=== PATIENT | male | born 1965 | race African-American/Black ===

== ENCOUNTER 2016-07-02 19:16 | Emergency (ER) | payer OTHER ==
[~2016-07-02] VITALS: Ht 167.6 cm; Wt 78.3 kg
[2016-07-02 20:18] LABS: CHLORIDE 100 mEq/L (99-109); POTASSIUM 3.3 mEq/L (3.7-5.4); SODIUM 135 mEq/L (136-147)
[2016-07-02 20:20] LABS: EOSINOPHIL (%) 0.9 % (0-5); EOSINOPHIL COUNT 0.1 K/uL (0-0.3); GLUCOSE 257 mg/dL (70-99); HEMATOCRIT 28.8 % (38.0-50.0); IMMATURE GRANULOCYTE (%) 0.2 % (0.0-0.7); INSTRUMENT ABS NEUTROPHIL CT 5.2 K/uL; MCH 27.4 PG (29.0-34.0); MCHC 35.1 G/DL (30.0-36.0); MEAN PLAT.VOLUME 12.2 uM^3 (9.0-12.4); MONOCYTE COUNT 0.9 K/uL (0-0.8); NEUTROPHIL (%) 63.3 % (45-76); NEUTROPHIL COUNT 5.2 K/uL (1.8-6.4); PLATELET COUNT 261 K/uL (156-360); RBC DIS.WIDTH-CV 11.4 % (11.8-14.6); RBC DIS.WIDTH-SD 32.2 % (39-53); RED BLOOD COUNT 3.69 M/uL (4.00-5.50); WHITE BLOOD COUNT 8.2 K/uL (4.1-10.2)
[2016-07-02 20:21] LABS: ANION GAP 11 MEQ/L (2-14)
[2016-07-02 20:22] LABS: TOTAL BILIRUBIN 0.4 mg/dL (0.0-1.0)
[2016-07-02 20:23] LABS: ALKALINE PHOSPHATASE 64 IU/L (3-129)
[2016-07-02 20:24] LABS: GFR ESTIMATE (CALCULATED) 39 mL/min/
[2016-07-02 20:25] LABS: UREA NITROGEN (BUN) 37 mg/dL (9-23)
[2016-07-02 20:27] LABS: LIPASE 23 U/L (1.0-51.0)
[2016-07-02 20:33] LABS: TROP-I INTERPRETATION NEGATIVE; TROPONIN-I 0.06 ng/mL (0.0-0.30)
[2016-07-02 22:04] LABS: ADD MIUA? YES; BILIRUBIN NEGATIVE; BLOOD NEGATIVE; COLOR YELLOW ((YELLOW)); GLUCOSE (STRIP) >=500; KETONES 5; LEUKOCYTES NEGATIVE; NITRITE NEGATIVE; PROTEIN (STRIP) >=500; SPECIFIC GRAVITY 1.016 (1.000-1.030); UROBILINOGEN 0.2 MG/DL (0.2-1.0)
[2016-07-02 22:08] LABS: BACTERIA NONE SEEN /HPF; EPITHELIAL CELLS RARE /HPF; HYALINE CASTS 0-5 /LPF; MUCUS NONE SEEN /LPF; UCUL ADDED? NO
[2016-07-03 00:45] VITALS: BP 178/98
== END 2016-07-03 01:00 ==
LOC: EME → EDBD 19:16 → EME 07-03 01:00
PROVIDERS: Emergency Medicine
DX: M54.5 Low back pain (principal); K59.00 Constipation, unspecified; R10.9 Unspecified abdominal pain; G89.29 Other chronic pain; E11.9 Type 2 diabetes mellitus without complications; E78.5 Hyperlipidemia, unspecified; I10 Essential (primary) hypertension; I25.2 Old myocardial infarction
CPT/HCPCS: 72070; 72100; 74176; 80053; 81003; 83690; 84484; 85025; 93005; 99281; 99285; J2270; J2405

== ENCOUNTER 2016-08-11 19:18 | Emergency (ER) | payer OTHER ==
[~2016-08-11] VITALS: Ht 167.6 cm; Wt 84.0 kg
[2016-08-11] MEDS ORDERED: NORCO 5/3251 TABLET PO (21:28)
[2016-08-11] MEDS ORDERED: ROBAXIN750 MG PO (21:28)
[2016-08-12 00:21] VITALS: BP 168/81
== END 2016-08-12 00:25 ==
LOC: EME 19:18
DX: M54.6 Pain in thoracic spine (principal); M62.830 Muscle spasm of back; G89.29 Other chronic pain; E11.9 Type 2 diabetes mellitus without complications; E78.5 Hyperlipidemia, unspecified; I10 Essential (primary) hypertension; I25.2 Old myocardial infarction
CPT/HCPCS: 99281; 99283

== ENCOUNTER 2016-08-17 16:41 | Emergency (ER) | payer OTHER ==
[~2016-08-17] VITALS: Ht 167.6 cm; Wt 84.3 kg
[~2016-08-17 16:41] MED LIST: NORCO 5/3251 TABLET PO; ROBAXIN750 MG PO
[2016-08-17 20:08] VITALS: BP 206/106
== END 2016-08-17 20:10 ==
LOC: EME 16:41
DX: S09.90XA Unspecified injury of head, initial encounter (principal); M54.2 Cervicalgia; V00.811A Fall from moving wheelchair (powered), initial encounter; I12.9 Hypertensive chronic kidney disease with stage 1 through stage 4 chronic kidney disease, or unspecified chronic kidney disease; N18.9 Chronic kidney disease, unspecified; E11.9 Type 2 diabetes mellitus without complications; I25.2 Old myocardial infarction
CPT/HCPCS: 70450; 72125; 72131; 99281; 99284